=== PATIENT | female | born 1985 | race Caucasian/White ===

== ENCOUNTER 2017-04-10 07:25 | Day surgery (SDC) | payer BC ==
[~2017-04-10] VITALS: Ht 170.2 cm; Wt 81.8 kg
[2017-04-10] VITALS (10 sets, daily range): BP systolic 109–122; BP diastolic 60–77; PULSE 66–90; TEMP 98.2
[2017-04-10] MEDS ORDERED: LESSINA 28 0.021 TAB PO (07:35)
[2017-04-10] MEDS ORDERED: LEXAPRO 10MG10 MG PO (07:35)
[2017-04-10 08:11] LABS: COLLECTION METHOD CLEAN CATCH
[2017-04-10 08:18] LABS: MUCOUS Present /lpf; PH 6 (5-8); SQUAMOUS EPITHELIAL 0-2 /hpf; URINE APPEARANCE Hazy; URINE BACTERIA Rare /hpf; URINE BILIRUBIN Negative (NEGATIVE); URINE BLOOD Negative (NEGATIVE); URINE COLOR Yellow; URINE GLUCOSE Negative (NEGATIVE); URINE KETONE Trace (NEGATIVE); URINE LEUKOCYTE ESTERASE Negative (NEGATIVE); URINE NITRATE Negative (NEGATIVE); URINE PROTEIN(semi-quant) Negative (NEGATIVE); URINE RBC 0-2 /hpf; URINE UROBILINOGEN >=4.0 mg/dL (NEGATIVE)
[2017-04-10 08:18] LABS: BASO # 0.1 (0.0-0.2); EOS # 0.1 (0.0-0.7); EOS % 1.8 % (0-4.0); GRAN # 3.3 (1.4-6.5); LYMPH # 2.5 (1.2-3.4); MEAN CELL VOLUME 91 fl (80.0-100.0); MEAN CORPUSCULAR HEMOGLOBIN 31 pg (27.0-31.0); MEAN CORPUSCULAR HGB CONC 34 g/dl (33.0-37.0); MEAN PLATELET VOLUME 9.7 fl (7.4-10.4); MONO # 0.7 (0.1-0.6); MONO % 10.9 % (1.7-9.3); PLATELET COUNT 338 K/mm3 (130-400); RED BLOOD COUNT 3.86 M/mm3 (4.10-5.30); REDCELL DISTRIBUTION WIDTH-CV 11.9 % (11.5-14.5)
[2017-04-10 08:31] LABS: ALBUMIN 4.5 gm/dL (3.5-5.0); BILIRUBIN,TOTAL 0.5 mg/dL (0.0-1.0); C-REACTIVE PROTEIN 0.9 mg/dL (0.0-0.9); CALCIUM 8.9 mg/dL (8.4-10.2); CREATININE, serum 0.62 mg/dL (0.52-1.25); POTASSIUM 4.4 mmol/L (3.4-5.0); TOTAL PROTEIN 7.8 gm/dL (6.4-8.2)
[2017-04-11 00:18] VITALS: BP 119/59; PULSE 55; TEMP 98.6
[2017-04-11 04:24] VITALS: BP 123/79; PULSE 86; TEMP 98.3
[2017-04-11 09:13] VITALS: BP 118/69; PULSE 63; TEMP 98.1
[2017-04-11] MEDS ORDERED: NORCO 325 MG-51 TAB PO (09:32)
== END 2017-04-11 10:17 | disposition home or self-care (01) ==
LOC: COL.ER 07:25 → SDCO 12:10 → SURG 19:14 → SDCO 04-11 10:17
PROVIDERS: Emergency Medicine
DX: K35.80 Unspecified acute appendicitis (principal); F32.9 Major depressive disorder, single episode, unspecified; Z88.2 Allergy status to sulfonamides; Z98.84 Bariatric surgery status
CPT/HCPCS: OP; J0694; J1100; J1885; J2270; J2405; J2704; J2710; J2765; J3010; J7030; J7120; Q9967